=== PATIENT | male | born 1960 | race Caucasian/White ===

== ENCOUNTER → 2020-12-18 | Outpatient (CLI) | payer OTHER | LOC: KOH-I 12:49 | DX: N20.0 Calculus of kidney (principal) | CPT/HCPCS: 74176 ==

== ENCOUNTER → 2021-01-21 | Outpatient (CLI) | payer OTHER | LOC: LAB 15:48 | PROVIDERS: Family Medicine | DX: R94.4 Abnormal results of kidney function studies (principal) | CPT/HCPCS: 36415; 80048 ==

== ENCOUNTER → 2021-03-05 | Outpatient (CLI) | payer OTHER | LOC: LAB 15:57 | PROVIDERS: Internal Medicine Nephrology | DX: N17.9 Acute kidney failure, unspecified (principal); N18.32 Chronic kidney disease, stage 3b | CPT/HCPCS: 36415; 80048; 81001; 82043; 82570; 84156 ==

== ENCOUNTER → 2021-03-21 | Outpatient (CLI) | payer OTHER | LOC: LAB 10:50 | PROVIDERS: Internal Medicine Nephrology | DX: N17.9 Acute kidney failure, unspecified (principal) | CPT/HCPCS: 36415; 80048 ==

== ENCOUNTER → 2021-06-03 | Outpatient (CLI) | payer OTHER | LOC: HEART 5 07:09 | DX: R06.02 Shortness of breath (principal); R94.39 Abnormal result of other cardiovascular function study | CPT/HCPCS: 78452; A9502; J2785 ==

== ENCOUNTER → 2021-06-18 | Outpatient (CLI) | payer OTHER ==
[2021-06-19 11:16] LABS: CREATININE, URINE 137.7 mg/dL (Not Estab.)
== END ==
LOC: LAB 09:28
PROVIDERS: Internal Medicine Nephrology
DX: N18.31 Chronic kidney disease, stage 3a (principal)
CPT/HCPCS: 36415; 80048; 81001; 82043; 82570; 84156

== ENCOUNTER → 2021-09-29 | Outpatient (CLI) | payer OTHER ==
[2021-09-30 10:15] LABS: CREATININE, URINE 157.7 mg/dL (Not Estab.)
== END ==
LOC: LAB 14:12
PROVIDERS: Internal Medicine Nephrology
DX: N18.31 Chronic kidney disease, stage 3a (principal)
CPT/HCPCS: 36415; 80048; 82043; 82570

== ENCOUNTER → 2021-11-10 | Outpatient (CLI) | payer OTHER | LOC: LAB 14:55 | PROVIDERS: Internal Medicine Nephrology | DX: N18.31 Chronic kidney disease, stage 3a (principal) | CPT/HCPCS: 36415; 80048 ==